=== PATIENT | male | born 1980 ===

== ENCOUNTER 2018-05-28 14:38 | Emergency (ER) | payer OTHER ==
[2018-05-28 15:32] VITALS: BP 141/84
--- NOTE | 2018-05-28 17:12 | UC ---
Abdominal Pain Male HPI - HPI Summary HPI Summary: Pt c/o RLQ pain X 2 days. Pt also c/o one episod eof diarrhea yesterday and one today. Deneis fever, vomiting and nausea. - History of Current Complaint Chief Complaint: UCGI Stated Complaint: STOMACH PAINS Time Seen by Provider: 05/28/18 16:24 Hx Obtained From: Patient Onset/Duration: Sudden Onset, Lasting Days, Still Present Timing: Constant Severity Initially: Mild Severity Currently: Mild Pain Intensity: 4 Pain Scale Used: 0-10 Numeric Location: Discrete At: RLQ Radiates: No Character: Aching, Dull Aggravating Factor(s): Movement Alleviating Factor(s): Rest, Position Associated Signs And Symptoms: Positive: Decreased Appetite, Diarrhea - Risk Factors Testicular Torsion: Negative Cardiac Risk Factors: Negative - Allergies/Home Medications Allergies/Adverse Reactions: Allergies Allergy/AdvReac Type Severity Reaction Status Date / Time cheese Allergy GI Upset Verified 05/28/18 15:26 PMH/Surg Hx/FS Hx/Imm Hx Previously Healthy: Yes - Surgical History Surgical History: None - Family History Known Family History: Positive: Diabetes - Social History Occupation: Employed Full-time Lives: With Family Alcohol Use: None Substance Use Type: None Smoking Status (MU): Heavy Every Day Tobacco Smoker Type: Cigarettes Amount Used/How Often: 1/2 PPD Length of Time of Smoking/Using Tobacco: 10 YRS Have You Smoked in the Last Year: Yes Review of Systems Constitutional: Negative Skin: Negative Eyes: Negative ENT: Negative Respiratory: Negative Cardiovascular: Negative Gastrointestinal: Abdominal Pain, Diarrhea Genitourinary: Negative Motor: Negative Neurovascular: Negative Musculoskeletal: Negative Neurological: Negative Psychological: Negative Is Patient Immunocompromised?: No All Other Systems Reviewed And Are Negative: Yes Physical Exam Triage Information Reviewed: Yes Appearance: Well-Appearing Vital Signs: Initial Vital Signs Temp 98.5 F 05/28/18 15:28 Pulse 101 05/28/18 15:28 Resp 16 05/28/18 15:28 BP 141/84 05/28/18 15:28 Pulse Ox 100 05/28/18 15:28 Vital Signs Reviewed: Yes Eye Exam: Normal ENT Exam: Normal Dental Exam: Normal Neck exam: Normal Respiratory Exam: Normal Cardiovascular Exam: Normal Abdomen Description: Positive: Other: - RLQ pain with palpation. Musculoskeletal Exam: Normal - denies abdominal pain with ambulation Neurological Exam: Normal Psychological Exam: Normal Skin Exam: Normal Abd Pain Male Course/Dx - Course Course Of Treatment: I discussed with the pt my concern for appendicitis and instructed the pt to seek care immediately at the [facility] if symptoms worsen. - Differential Dx/Clinical Impression Differential Diagnosis/HQI/PQRI: Appendicitis Provider Diagnoses: abdominal pain Discharge - Sign-Out/Discharge Documenting (check all that apply): Patient Departure - Discharge Plan Condition: Stable Disposition: HOME Patient Education Materials: Abdominal Pain (ED) Referrals: Georgia Escamilla MD [Primary Care Provider] - If Needed Additional Instructions: Please follow up with your PCP or seek care at the closest emergency room if your symptoms worsen. - Billing Disposition and Condition Condition: STABLE Disposition: Home
== END 2018-05-28 16:42 | disposition home or self-care (01) ==
LOC: UCCORT 14:38
DX: R10.31 Right lower quadrant pain (principal); F17.210 Nicotine dependence, cigarettes, uncomplicated; Z91.011 Allergy to milk products
CPT/HCPCS: 99211; G0463